=== PATIENT | male | born 1930 | race Caucasian/White ===

== ENCOUNTER 2016-04-11 14:19 | Outpatient (RCR) | payer MEDICARE ==
--- OUTSIDE RECORDS SUMMARY | 2016-04-11 14:22 | XMS REPORT | Continuity of Care Document ---
Author Author [facility] Organization [facility] Address Unknown Phone Unavailable Care Team Providers Care It Corporate Recruiter Name Role Phone PHOEBE MEDELLIN PCP Insurance Providers Payer Name Policy Number Subscriber Name Relationship [employer] [id number] Champ Brumfield 18 Self / Same As Patient [facility] [id number] Champ Brumfield 17 Self / Same As Patient Problems No problem information available. Medications No medication information available. Social History Social History Problem Response Recorded Date/Time Recent Foreign Travel N [place] 10/12/2015 11:11am Hospital Discharge Instructions No hospital discharge instructions. Plan of Care Prescriptions See Medication Section Functional Status No functional status results. Allergies, Adverse Reactions, Alerts No allergy information available. Immunizations No immunization records. Vital Signs No known vital signs results. Results Laboratory Results Test Name Result Units Flags Reference Collection Date/Time Result Date/ Time Comments White Blood Count 5.4 10^3/uL 4.3-11.0 10/12/2015 11:19am 10/12/2015 11 :25am Red Blood Count 3.58 10^6/uL L 4.35-5.85 10/12/2015 11:19am 10/12/2015 11 :25am Hemoglobin 11.7 G/DL L 13.3-17.7 10/12/2015 11:19am 10/12/2015 11:25am Hematocrit 36 % L 40-54 10/12/2015 11:19am 10/12/2015 11:25am Mean Corpuscular Volume 101 FL H 80-99 10/12/2015 11:10/12/2015 11: 25am Mean Corpuscular Hemoglobin 33 PG 25-34 10/12/2015 11:10/12/2015 11:25am Mean Corpuscular Hemoglobin Concent 33 G/DL 32-36 10/12/2015 11: 11:25am Red Cell Distribution Width 16.3 % H 10.0-14.5 10/12/2015 11:2015 11:25am Platelet Count 92 10^3/uL L 130-400 10/12/2015 11:10/12/2015 11: 25am Mean Platelet Volume 8.8 FL 7.4-10.4 10/12/2015 11:10/12/2015 11: 25am Neutrophils (%) (Auto) 74 % 42-75 10/12/2015 11:10/12/2015 11: 25am Lymphocytes (%) (Auto) 15 % 12-44 10/12/2015 11:10/12/2015 11: 25am Monocytes (%) (Auto) 9 % 0-12 10/12/2015 11:10/12/2015 11:25am Eosinophils (%) (Auto) 3 % 0-10 10/12/2015 11:10/12/2015 11:25am Basophils (%) (Auto) 0 % 0-10 10/12/2015 11:10/12/2015 11:25am Neutrophils # (Auto) 4.0 X 10^3 1.8-7.8 10/12/2015 11:10/12/2015 11:25am Lymphocytes # (Auto) 0.8 X 10^3 L 1.0-4.0 10/12/2015 11:10/12/2015 11:25am Monocytes # (Auto) 0.5 X 10^3 0.0-1.0 10/12/2015 11:10/12/2015 11: 25am Eosinophils # (Auto) 0.2 10^3/uL 0.0-0.3 10/12/2015 11:10/12/2015 11:25am Basophils # (Auto) 0.0 10^3/uL 0.0-0.1 10/12/2015 11:19am 10/12/2015 11 :25am Absolute Reticulocyte Count 38 10e9/L 24-90 09/11/2015 2:12p2015 2:18pm Percent Reticulocyte Count 1.05 % 0.50-2.40 09/11/2015 2:12p2015 2:18pm Sodium Level 141 MMOL/L 135-145 09/11/2015 2:12p09/11/2015 2:56pm Potassium Level 4.1 MMOL/L 3.6-5.0 09/11/2015 2:12p09/11/2015 2:56pm Chloride Level 105 MMOL/L 98-107 09/11/2015 2:12pm 09/11/2015 2:56pm Carbon Dioxide Level 30 MMOL/L 21-32 09/11/2015 2:12pm 09/11/2015 2: 56pm Anion Gap 6 MMOL/L 5-14 09/11/2015 2:12pm 09/11/2015 2:56pm Blood Urea Nitrogen 24 MG/DL H 7-18 09/11/2015 2:12p09/11/2015 2:56pm Creatinine 1.20 MG/DL 0.60-1.30 09/11/2015 2:12pm 09/11/2015 2:56pm BUN/Creatinine Ratio 20 09/11/2015 2:12p09/11/2015 2:56pm Estimat Glomerular Filtration Rate 58 09/11/2015 2:12p09/11/2015 2:56pm GFR INTERPRETIVE DATA UNITS FOR ESTIMATED GFR (eGFR): mL/min/1.73 M2 REFERENCE RANGE FOR ESTIMATED GFR (eGFR) eGFR NORMAL eGFR >60 MODERATELY DECREASED eGFR 30-59 SEVERLY DECREASED eGFR 15-29 KIDNEY FAILURE <15 (OR DIALYSIS) Glucose Level 117 MG/DL H 70-105 09/11/2015 2:12pm 09/11/2015 2:56pm Calcium Level 9.3 MG/DL 8.5-10.1 09/11/2015 2:12p09/11/2015 2:56pm Total Bilirubin 0.3 MG/DL 0.1-1.0 09/11/2015 2:12pm 09/11/2015 2:56pm Alkaline Phosphatase 93 U/L 40-136 09/11/2015 2:12p09/11/2015 2:56pm Aspartate Amino Transf (AST/SGOT) 27 U/L 5-34 09/11/2015 2:12pm 2015 2:56pm Alanine Aminotransferase (ALT/SGPT) 20 U/L 0-55 09/11/2015 2:12pm 09/10 2:56pm Lactate Dehydrogenase 189 U/L 125-220 09/11/2015 2:12pm 09/11/2015 2: 56pm Total Protein 6.3 G/DL L 6.4-8.2 09/11/2015 2:12pm 09/11/2015 2:56pm Albumin 3.6 G/DL 3.2-4.5 09/11/2015 2:12pm 09/11/2015 2:56pm Thyroid Stimulating Hormone (TSH) 1.96 UIU/ML 0.35-4.94 09/11/2015 2: 12pm 09/11/2015 3:17pm Ferritin 186 NG/ML 25-300 09/11/2015 2:12pm 09/12/2015 7:17am Test performed at [place] [address] CLIA# [id number], Joy Boone MD - [employer] Folate >24.0 NG/ML * 1.5-24.0 09/11/2015 2:12pm 09/12/2015 7:20am Test performed at [place] [address] CLIA# [id number], Joy Boone MD - [employer] Iron Level 65 UG/DL 40-180 09/11/2015 2:12pm 09/11/2015 4:59pm Test performed at [address] [address] CLIA# [id number], Ariela Woodward MD - [employer] Transferrin % Saturation 29 % 15-50 09/11/2015 2:12pm 09/11/2015 5: 00pm Total Iron Binding Capacity 223 UG/DL L 280-380 09/11/2015 2:12p2015 5:00pm Unsaturated Iron Binding Capacity 158 MCG/DL 09/11/2015 2:12pm 2015 5:00pm Test performed at [place] [id number] CLIA# [id number], Ariela Woodward MD - [employer] Methylmalonic Acid 0.21 umol/L 0.00-0.40 09/11/2015 2:12pm 09/14/2015 11:51am INTERPRETIVE INFORMATION: MMA Serum/Plasma, Vitamin B12 Status Test developed and characteristics determined by [facility]. See Compliance Statement B: [facility] Performed by [facility], [address] [place] [id number] [email or web address], Miguel Brooke MD - Lab. Director Test performed at [address] [address] CLIA# [id number] Vitamin B12 Level 1404 PG/ML H 200-1000 09/11/2015 2:12pm 09/12/2015 7: 20am Test performed at [place] [address], [facility] [address] CLIA# [id number], Joy Boone MD - [employer] Procedures No known history of procedures. Encounters Encounter Location Arrival/Admit Date Discharge/Depart Date Attending Provider Discharged [facility] 10/12/15 11:11am 11:59pm CHRISTINE BONE
[2016-04-11 14:58] LABS: BASOPHILS % (AUTO) 0 % (0-10); EOSINOPHILS # (AUTO) 0.1 10^3/uL (0.0-0.3); EOSINOPHILS % (AUTO) 2 % (0-10); LYMPHOCYTES # (AUTO) 0.9 X 10^3 (1.0-4.0); LYMPHOCYTES % (AUTO) 18 % (12-44); MEAN CORPUSCULAR HEMOGLOBIN 31 PG (25-34); MEAN CORPUSCULAR HGB CONC 33 G/DL (32-36); MEAN CORPUSCULAR VOLUME 96 FL (80-99); MEAN PLATELET VOLUME 8.8 FL (7.4-10.4); MONOCYTES # (AUTO) 0.4 X 10^3 (0.0-1.0); MONOCYTES % (AUTO) 9 % (0-12); NEUTROPHILS # (AUTO) 3.4 X 10^3 (1.8-7.8); NEUTROPHILS % (AUTO) 70 % (42-75); PLATELET COUNT 146 10^3/uL (130-400); RED BLOOD COUNT 4.03 10^6/uL (4.35-5.85); RED CELL DISTRIBUTION WIDTH 15.4 % (10.0-14.5); WHITE BLOOD COUNT 4.8 10^3/uL (4.3-11.0)
[2016-04-11 15:29] LABS: ERYTHROCYTE SEDIMENTATION RATE 8 MM/HR (0-30)
[2016-04-11 15:39] LABS: ALBUMIN 3.8 G/DL (3.2-4.5); BILIRUBIN,TOTAL 0.8 MG/DL (0.1-1.0); CREATININE SERUM 1.34 MG/DL (0.60-1.30); POTASSIUM 3.5 MMOL/L (3.6-5.0); TOTAL PROTEIN 6.2 G/DL (6.4-8.2); hs C REACTIVE PROTEIN 0.18 MG/DL (0.00-0.50)
== END 2016-07-10 | disposition home or self-care (01) ==
LOC: ONC 14:19
PROVIDERS: ATTEND Internal Medicine Hematology & Oncology
DX: D64.9 Anemia, unspecified (principal); N18.3 Chronic kidney disease, stage 3 (moderate); M06.9 Rheumatoid arthritis, unspecified; Z85.46 Personal history of malignant neoplasm of prostate; Z79.899 Other long term (current) drug therapy; Z92.3 Personal history of irradiation
CPT/HCPCS: 36415; 80053; 82728; 85025; 85045; 85652; 86141; 99213

== ENCOUNTER 2016-12-30 14:29 | Outpatient (RCR) | payer MEDICARE ==
[2016-10-24 09:51] LABS: BASOPHILS % (AUTO) 0 % (0-10); EOSINOPHILS # (AUTO) 0.1 10^3/uL (0.0-0.3); EOSINOPHILS % (AUTO) 1 % (0-10); LYMPHOCYTES # (AUTO) 0.7 X 10^3 (1.0-4.0); LYMPHOCYTES % (AUTO) 9 % (12-44); MEAN CORPUSCULAR HEMOGLOBIN 32 PG (25-34); MEAN CORPUSCULAR HGB CONC 33 G/DL (32-36); MEAN CORPUSCULAR VOLUME 99 FL (80-99); MEAN PLATELET VOLUME 9.2 FL (7.4-10.4); MONOCYTES # (AUTO) 0.4 X 10^3 (0.0-1.0); MONOCYTES % (AUTO) 6 % (0-12); NEUTROPHILS # (AUTO) 6.1 X 10^3 (1.8-7.8); NEUTROPHILS % (AUTO) 84 % (42-75); PLATELET COUNT 158 10^3/uL (130-400); RED BLOOD COUNT 3.57 10^6/uL (4.35-5.85); RED CELL DISTRIBUTION WIDTH 15.2 % (10.0-14.5); WHITE BLOOD COUNT 7.3 10^3/uL (4.3-11.0)
[2016-10-24 10:19] LABS: ALBUMIN 3.3 G/DL (3.2-4.5); BILIRUBIN,TOTAL 0.6 MG/DL (0.1-1.0); CALCIUM 9.2 MG/DL (8.5-10.1); CREATININE SERUM 1.18 MG/DL (0.60-1.30); POTASSIUM 4.4 MMOL/L (3.6-5.0); TOTAL PROTEIN 5.6 G/DL (6.4-8.2)
[2016-12-23 12:04] LABS: BASOPHILS % (AUTO) 0 % (0-10); EOSINOPHILS # (AUTO) 0.2 10^3/uL (0.0-0.3); EOSINOPHILS % (AUTO) 4 % (0-10); LYMPHOCYTES # (AUTO) 1.1 X 10^3 (1.0-4.0); LYMPHOCYTES % (AUTO) 19 % (12-44); MEAN CORPUSCULAR HEMOGLOBIN 33 PG (25-34); MEAN CORPUSCULAR HGB CONC 33 G/DL (32-36); MEAN CORPUSCULAR VOLUME 102 FL (80-99); MEAN PLATELET VOLUME 9.9 FL (7.4-10.4); MONOCYTES # (AUTO) 0.5 X 10^3 (0.0-1.0); MONOCYTES % (AUTO) 9 % (0-12); NEUTROPHILS # (AUTO) 3.9 X 10^3 (1.8-7.8); NEUTROPHILS % (AUTO) 68 % (42-75); PLATELET COUNT 138 10^3/uL (130-400); RED BLOOD COUNT 3.62 10^6/uL (4.35-5.85); RED CELL DISTRIBUTION WIDTH 14.7 % (10.0-14.5); WHITE BLOOD COUNT 5.6 10^3/uL (4.3-11.0)
[2016-12-23 12:20] LABS: ALBUMIN 3.9 GM/DL (3.2-4.5); BILIRUBIN,TOTAL 1.1 MG/DL (0.1-1.0); CALCIUM 9.4 MG/DL (8.5-10.1); CREATININE SERUM 1.2 MG/DL (0.60-1.30); TOTAL PROTEIN 6.4 GM/DL (6.4-8.2)
== END 2017-01-22 | disposition home or self-care (01) ==
LOC: ONC 14:29
PROVIDERS: ATTEND Internal Medicine Hematology & Oncology
DX: D64.9 Anemia, unspecified (principal); N18.3 Chronic kidney disease, stage 3 (moderate); M06.9 Rheumatoid arthritis, unspecified; Z85.46 Personal history of malignant neoplasm of prostate; Z79.899 Other long term (current) drug therapy; Z92.3 Personal history of irradiation
CPT/HCPCS: 36415; 80053; 82728; 84153; 85025; 85045; 99213

== ENCOUNTER 2017-05-08 12:40 | Outpatient (RCR) | payer MEDICARE ==
[2017-05-08 13:16] LABS: ABSOLUTE RETIC # 84 10e9/L (24-90); BASOPHILS % (AUTO) 0 % (0-10); EOSINOPHILS # (AUTO) 0.1 10^3/uL (0.0-0.3); EOSINOPHILS % (AUTO) 3 % (0-10); HEMATOCRIT 39 % (40-54); HEMOGLOBIN 12.8 G/DL (13.3-17.7); LYMPHOCYTES # (AUTO) 1.2 X 10^3 (1.0-4.0); LYMPHOCYTES % (AUTO) 22 % (12-44); MEAN CORPUSCULAR HEMOGLOBIN 32 PG (25-34); MEAN CORPUSCULAR HGB CONC 33 G/DL (32-36); MEAN CORPUSCULAR VOLUME 97 FL (80-99); MEAN PLATELET VOLUME 9.3 FL (7.4-10.4); MONOCYTES # (AUTO) 0.3 X 10^3 (0.0-1.0); MONOCYTES % (AUTO) 6 % (0-12); NEUTROPHILS # (AUTO) 3.6 X 10^3 (1.8-7.8); NEUTROPHILS % (AUTO) 69 % (42-75); PLATELET COUNT 185 10^3/uL (130-400); RED BLOOD COUNT 4.01 10^6/uL (4.35-5.85); RED CELL DISTRIBUTION WIDTH 15.6 % (10.0-14.5); RETICULOCYTE % 2.09 % (0.50-2.40); WHITE BLOOD COUNT 5.2 10^3/uL (4.3-11.0)
[2017-05-08 13:35] LABS: ALBUMIN 3.7 GM/DL (3.2-4.5); BILIRUBIN,TOTAL 0.8 MG/DL (0.1-1.0); CALCIUM 9.8 MG/DL (8.5-10.1); CREATININE SERUM 1.38 MG/DL (0.60-1.30); POTASSIUM 3.8 MMOL/L (3.6-5.0); TOTAL PROTEIN 6.5 GM/DL (6.4-8.2)
== END 2017-08-06 | disposition home or self-care (01) ==
LOC: ONC 12:40
PROVIDERS: ATTEND Internal Medicine Hematology & Oncology
DX: D64.9 Anemia, unspecified (principal); N18.3 Chronic kidney disease, stage 3 (moderate); M06.9 Rheumatoid arthritis, unspecified; Z85.46 Personal history of malignant neoplasm of prostate; Z79.899 Other long term (current) drug therapy; Z92.3 Personal history of irradiation
CPT/HCPCS: 36415; 80053; 83615; 84153; 85025; 85045; 99213

== ENCOUNTER 2017-09-04 12:31 | Outpatient (RCR) | payer MEDICARE ==
[2017-09-04 13:12] LABS: ABSOLUTE RETIC # 47 10e9/L (24-90); BASOPHILS % (AUTO) 0 % (0-10); EOSINOPHILS # (AUTO) 0.2 10^3/uL (0.0-0.3); EOSINOPHILS % (AUTO) 4 % (0-10); HEMATOCRIT 36 % (40-54); HEMOGLOBIN 11.8 G/DL (13.3-17.7); LYMPHOCYTES # (AUTO) 1.3 X 10^3 (1.0-4.0); LYMPHOCYTES % (AUTO) 21 % (12-44); MEAN CORPUSCULAR HEMOGLOBIN 32 PG (25-34); MEAN CORPUSCULAR HGB CONC 33 G/DL (32-36); MEAN CORPUSCULAR VOLUME 96 FL (80-99); MEAN PLATELET VOLUME 9.5 FL (7.4-10.4); MONOCYTES # (AUTO) 0.5 X 10^3 (0.0-1.0); MONOCYTES % (AUTO) 9 % (0-12); NEUTROPHILS # (AUTO) 3.8 X 10^3 (1.8-7.8); NEUTROPHILS % (AUTO) 66 % (42-75); PLATELET COUNT 187 10^3/uL (130-400); RED BLOOD COUNT 3.74 10^6/uL (4.35-5.85); RETICULOCYTE % 1.26 % (0.50-2.40); WHITE BLOOD COUNT 5.9 10^3/uL (4.3-11.0)
[2017-09-04 13:32] LABS: ALBUMIN 3.6 GM/DL (3.2-4.5); BILIRUBIN,TOTAL 0.8 MG/DL (0.1-1.0); CALCIUM 9.3 MG/DL (8.5-10.1); CREATININE SERUM 1.19 MG/DL (0.60-1.30); POTASSIUM 3.8 MMOL/L (3.6-5.0); TOTAL PROTEIN 6.5 GM/DL (6.4-8.2)
== END 2017-12-03 | disposition home or self-care (01) ==
LOC: ONC 12:31
PROVIDERS: ATTEND Internal Medicine Hematology & Oncology
DX: N18.3 Chronic kidney disease, stage 3 (moderate) (principal); D63.1 Anemia in chronic kidney disease; I12.9 Hypertensive chronic kidney disease with stage 1 through stage 4 chronic kidney disease, or unspecified chronic kidney disease; K92.1 Melena; M54.5 Low back pain; M25.551 Pain in right hip; M89.9 Disorder of bone, unspecified; R97.21 Rising PSA following treatment for malignant neoplasm of prostate; Z85.46 Personal history of malignant neoplasm of prostate; Z79.899 Other long term (current) drug therapy; Z92.3 Personal history of irradiation; Z79.01 Long term (current) use of anticoagulants
CPT/HCPCS: 80053; 82728; 83615; 84153; 85025; 85045; 99213

== ENCOUNTER → 2018-01-12 | Outpatient (CLI) | payer MEDICARE ==
[2018-01-12 12:57] LABS: BASOPHILS % (AUTO) 0 % (0-10); EOSINOPHILS # (AUTO) 0.3 10^3/uL (0.0-0.3); EOSINOPHILS % (AUTO) 5 % (0-10); HEMATOCRIT 36 % (40-54); HEMOGLOBIN 11.8 G/DL (13.3-17.7); LYMPHOCYTES # (AUTO) 1.3 X 10^3 (1.0-4.0); LYMPHOCYTES % (AUTO) 24 % (12-44); MEAN CORPUSCULAR HEMOGLOBIN 31 PG (25-34); MEAN CORPUSCULAR HGB CONC 33 G/DL (32-36); MEAN CORPUSCULAR VOLUME 95 FL (80-99); MONOCYTES # (AUTO) 0.4 X 10^3 (0.0-1.0); MONOCYTES % (AUTO) 8 % (0-12); NEUTROPHILS # (AUTO) 3.3 X 10^3 (1.8-7.8); NEUTROPHILS % (AUTO) 62 % (42-75); PLATELET COUNT 186 10^3/uL (130-400); RED BLOOD COUNT 3.76 10^6/uL (4.35-5.85); RED CELL DISTRIBUTION WIDTH 14.8 % (10.0-14.5); WHITE BLOOD COUNT 5.3 10^3/uL (4.3-11.0)
[2018-01-12 13:14] LABS: ALBUMIN 3.7 GM/DL (3.2-4.5); BILIRUBIN,TOTAL 0.7 MG/DL (0.1-1.0); CALCIUM 9.7 MG/DL (8.5-10.1); CREATININE SERUM 1.4 MG/DL (0.60-1.30); TOTAL PROTEIN 6.6 GM/DL (6.4-8.2)
== END ==
LOC: EDSTATUS 12-04 12:36 → ONC 12:38
PROVIDERS: ATTEND Internal Medicine Hematology & Oncology
DX: N18.3 Chronic kidney disease, stage 3 (moderate) (principal); D63.1 Anemia in chronic kidney disease; I12.9 Hypertensive chronic kidney disease with stage 1 through stage 4 chronic kidney disease, or unspecified chronic kidney disease; M89.9 Disorder of bone, unspecified; R97.21 Rising PSA following treatment for malignant neoplasm of prostate; Z85.46 Personal history of malignant neoplasm of prostate; Z79.899 Other long term (current) drug therapy; Z92.3 Personal history of irradiation; Z79.01 Long term (current) use of anticoagulants
CPT/HCPCS: 36415; 80053; 85025; 99213

== ENCOUNTER 2018-05-25 13:54 | Outpatient (RCR) | payer MEDICARE ==
[2018-05-25 14:10] LABS: BASOPHILS % (AUTO) 0 % (0-10); EOSINOPHILS # (AUTO) 0.1 10^3/uL (0.0-0.3); EOSINOPHILS % (AUTO) 3 % (0-10); HEMATOCRIT 36 % (40-54); HEMOGLOBIN 11.4 G/DL (13.3-17.7); LYMPHOCYTES # (AUTO) 1.3 X 10^3 (1.0-4.0); LYMPHOCYTES % (AUTO) 23 % (12-44); MEAN CORPUSCULAR HEMOGLOBIN 30 PG (25-34); MEAN CORPUSCULAR HGB CONC 32 G/DL (32-36); MEAN CORPUSCULAR VOLUME 96 FL (80-99); MEAN PLATELET VOLUME 8.9 FL (7.4-10.4); MONOCYTES # (AUTO) 0.4 X 10^3 (0.0-1.0); MONOCYTES % (AUTO) 7 % (0-12); NEUTROPHILS # (AUTO) 3.7 X 10^3 (1.8-7.8); NEUTROPHILS % (AUTO) 67 % (42-75); PLATELET COUNT 160 10^3/uL (130-400); RED CELL DISTRIBUTION WIDTH 14.9 % (10.0-14.5); WHITE BLOOD COUNT 5.5 10^3/uL (4.3-11.0)
[2018-05-25 14:32] LABS: ALBUMIN 3.9 GM/DL (3.2-4.5); BILIRUBIN,TOTAL 0.8 MG/DL (0.1-1.0); CALCIUM 9.6 MG/DL (8.5-10.1); CREATININE SERUM 1.31 MG/DL (0.60-1.30); POTASSIUM 3.6 MMOL/L (3.6-5.0); TOTAL PROTEIN 6.5 GM/DL (6.4-8.2)
== END 2018-08-23 | disposition home or self-care (01) ==
LOC: ONC 13:54
PROVIDERS: ATTEND Internal Medicine Hematology & Oncology
DX: N18.3 Chronic kidney disease, stage 3 (moderate) (principal); D63.1 Anemia in chronic kidney disease; I12.9 Hypertensive chronic kidney disease with stage 1 through stage 4 chronic kidney disease, or unspecified chronic kidney disease; M89.9 Disorder of bone, unspecified; R97.21 Rising PSA following treatment for malignant neoplasm of prostate; Z85.46 Personal history of malignant neoplasm of prostate; Z79.899 Other long term (current) drug therapy; Z92.3 Personal history of irradiation; Z79.01 Long term (current) use of anticoagulants; K92.1 Melena; M54.5 Low back pain; M25.551 Pain in right hip
CPT/HCPCS: 36415; 80053; 85025; 99213

== ENCOUNTER 2018-09-28 10:51 | Outpatient (RCR) | payer MEDICARE ==
[2018-09-28 11:07] LABS: ABSOLUTE RETIC # 37 10e9/L (24-90); BASOPHILS % (AUTO) 0 % (0-10); EOSINOPHILS # (AUTO) 0.1 10^3/uL (0.0-0.3); EOSINOPHILS % (AUTO) 3 % (0-10); HEMATOCRIT 37 % (40-54); HEMOGLOBIN 11.8 G/DL (13.3-17.7); LYMPHOCYTES # (AUTO) 1.2 X 10^3 (1.0-4.0); LYMPHOCYTES % (AUTO) 21 % (12-44); MEAN CORPUSCULAR HEMOGLOBIN 31 PG (25-34); MEAN CORPUSCULAR HGB CONC 32 G/DL (32-36); MEAN CORPUSCULAR VOLUME 95 FL (80-99); MEAN PLATELET VOLUME 9.5 FL (7.4-10.4); MONOCYTES # (AUTO) 0.4 X 10^3 (0.0-1.0); MONOCYTES % (AUTO) 7 % (0-12); NEUTROPHILS # (AUTO) 3.8 X 10^3 (1.8-7.8); NEUTROPHILS % (AUTO) 69 % (42-75); PLATELET COUNT 141 10^3/uL (130-400); RED CELL DISTRIBUTION WIDTH 14.8 % (10.0-14.5); RETICULOCYTE % 0.95 % (0.50-2.40); WHITE BLOOD COUNT 5.5 10^3/uL (4.3-11.0)
[2018-09-28 11:31] LABS: ALBUMIN 3.9 GM/DL (3.2-4.5); BILIRUBIN,TOTAL 0.8 MG/DL (0.1-1.0); CALCIUM 9.5 MG/DL (8.5-10.1); CREATININE SERUM 1.39 MG/DL (0.60-1.30); POTASSIUM 3.4 MMOL/L (3.6-5.0); TOTAL PROTEIN 6.7 GM/DL (6.4-8.2)
== END 2018-12-27 | disposition home or self-care (01) ==
LOC: ONC 10:51
PROVIDERS: ATTEND Internal Medicine Hematology & Oncology
DX: N18.3 Chronic kidney disease, stage 3 (moderate) (principal); D63.1 Anemia in chronic kidney disease; I12.9 Hypertensive chronic kidney disease with stage 1 through stage 4 chronic kidney disease, or unspecified chronic kidney disease; M89.9 Disorder of bone, unspecified; R97.21 Rising PSA following treatment for malignant neoplasm of prostate; Z85.46 Personal history of malignant neoplasm of prostate; Z79.899 Other long term (current) drug therapy; Z92.3 Personal history of irradiation; Z79.01 Long term (current) use of anticoagulants; K92.1 Melena; M54.5 Low back pain; M25.551 Pain in right hip
CPT/HCPCS: 36415; 80053; 82728; 83615; 84153; 85025; 85045; 99213

== ENCOUNTER 2019-01-04 10:47 | Outpatient (RCR) | payer MEDICARE ==
[2019-01-04 11:09] LABS: ABSOLUTE RETIC # 78 10e9/L (24-90); BASOPHILS % (AUTO) 0 % (0-10); EOSINOPHILS # (AUTO) 0.2 10^3/uL (0.0-0.3); EOSINOPHILS % (AUTO) 3 % (0-10); HEMATOCRIT 34 % (40-54); HEMOGLOBIN 10.7 G/DL (13.3-17.7); LYMPHOCYTES # (AUTO) 1.1 X 10^3 (1.0-4.0); LYMPHOCYTES % (AUTO) 17 % (12-44); MEAN CORPUSCULAR HEMOGLOBIN 31 PG (25-34); MEAN CORPUSCULAR HGB CONC 31 G/DL (32-36); MEAN CORPUSCULAR VOLUME 99 FL (80-99); MEAN PLATELET VOLUME 9.2 FL (7.4-10.4); MONOCYTES # (AUTO) 0.4 X 10^3 (0.0-1.0); MONOCYTES % (AUTO) 7 % (0-12); NEUTROPHILS # (AUTO) 4.5 X 10^3 (1.8-7.8); NEUTROPHILS % (AUTO) 73 % (42-75); PLATELET COUNT 216 10^3/uL (130-400); RED CELL DISTRIBUTION WIDTH 15.1 % (10.0-14.5); RETICULOCYTE % 2.28 % (0.50-2.40); WHITE BLOOD COUNT 6.2 10^3/uL (4.3-11.0)
[2019-01-04 11:32] LABS: ALBUMIN 3.6 GM/DL (3.2-4.5); BILIRUBIN,TOTAL 0.5 MG/DL (0.1-1.0); CALCIUM 9.5 MG/DL (8.5-10.1); CREATININE SERUM 1.38 MG/DL (0.60-1.30); POTASSIUM 3.6 MMOL/L (3.6-5.0); TOTAL PROTEIN 6.6 GM/DL (6.4-8.2)
[2019-01-18] MEDS ORDERED: CYANOCOBALAMIN INJ 1000 MCG/ML (CANCER CENTER) ONE (13:41)
== END 2019-04-04 | disposition home or self-care (01) ==
LOC: ONC 10:47
PROVIDERS: ATTEND Internal Medicine Hematology & Oncology
DX: N18.3 Chronic kidney disease, stage 3 (moderate) (principal); D63.1 Anemia in chronic kidney disease; I12.9 Hypertensive chronic kidney disease with stage 1 through stage 4 chronic kidney disease, or unspecified chronic kidney disease; M89.9 Disorder of bone, unspecified; R97.21 Rising PSA following treatment for malignant neoplasm of prostate; Z85.46 Personal history of malignant neoplasm of prostate; Z79.899 Other long term (current) drug therapy; Z92.3 Personal history of irradiation; Z79.01 Long term (current) use of anticoagulants; K92.1 Melena; M54.5 Low back pain; M25.551 Pain in right hip
CPT/HCPCS: 36415; 80053; 82728; 84153; 85025; 85045; 99213

== ENCOUNTER → 2019-04-06 | Outpatient (CLI) | payer MEDICARE ==
[2019-04-06 13:41] LABS: ABSOLUTE RETIC # 43 10e9/L (24-90); BASOPHILS % (AUTO) 0 % (0-10); EOSINOPHILS # (AUTO) 0.1 10^3/uL (0.0-0.3); EOSINOPHILS % (AUTO) 3 % (0-10); HEMATOCRIT 37 % (40-54); HEMOGLOBIN 11.8 G/DL (13.3-17.7); LYMPHOCYTES # (AUTO) 0.9 X 10^3 (1.0-4.0); LYMPHOCYTES % (AUTO) 22 % (12-44); MEAN CORPUSCULAR HEMOGLOBIN 31 PG (25-34); MEAN CORPUSCULAR HGB CONC 32 G/DL (32-36); MEAN CORPUSCULAR VOLUME 96 FL (80-99); MONOCYTES # (AUTO) 0.3 X 10^3 (0.0-1.0); MONOCYTES % (AUTO) 8 % (0-12); NEUTROPHILS # (AUTO) 2.7 X 10^3 (1.8-7.8); NEUTROPHILS % (AUTO) 67 % (42-75); PLATELET COUNT 199 10^3/uL (130-400); RED CELL DISTRIBUTION WIDTH 14.6 % (10.0-14.5); RETICULOCYTE % 1.12 % (0.50-2.40); WHITE BLOOD COUNT 4.1 10^3/uL (4.3-11.0)
[2019-04-06 14:02] LABS: ALBUMIN 3.8 GM/DL (3.2-4.5); BILIRUBIN,TOTAL 0.7 MG/DL (0.1-1.0); CALCIUM 9.4 MG/DL (8.5-10.1); CREATININE SERUM 1.27 MG/DL (0.60-1.30); POTASSIUM 3.9 MMOL/L (3.6-5.0); TOTAL PROTEIN 6.9 GM/DL (6.4-8.2)
== END ==
LOC: EDSTATUS 04-05 13:17 → ONC 13:19
PROVIDERS: ATTEND Internal Medicine Hematology & Oncology
DX: N18.3 Chronic kidney disease, stage 3 (moderate) (principal); D63.1 Anemia in chronic kidney disease; I12.9 Hypertensive chronic kidney disease with stage 1 through stage 4 chronic kidney disease, or unspecified chronic kidney disease; M89.9 Disorder of bone, unspecified; R97.21 Rising PSA following treatment for malignant neoplasm of prostate; Z85.46 Personal history of malignant neoplasm of prostate; Z79.899 Other long term (current) drug therapy; Z92.3 Personal history of irradiation; Z79.01 Long term (current) use of anticoagulants; K92.1 Melena; M54.5 Low back pain; M25.551 Pain in right hip
CPT/HCPCS: 36415; 80053; 82728; 84153; 85025; 85045; 99213